=== PATIENT | male | born 1975 | race Native Hawaiian/Other Pacific Islander ===

== ENCOUNTER 2021-08-02 00:20 | Inpatient (IN) | payer OTHER ==
[~2021-08-02] VITALS: Ht 170.2 cm; Wt 83.7 kg
[2021-08-02 01:08] LABS: Eosinophils # (auto) 0.1 10 ^3/uL (0-0.8); Eosinophils % (auto) 1.6 % (0.0-7.0); Lymphocytes # (auto) 2.1 10 ^3/uL (0.4-5.4); Monocytes # (auto) 0.6 10 ^3/uL (0-1.3); Nucleated Red Blood Cells % 0.1 %
[2021-08-02 01:12] LABS: Basophils # (auto) 0 10 ^3/uL (0-0.2); Basophils % (auto) 0.5 % (0.0-2.0); Lymphocytes % (auto) 22.3 % (10.0-50.0); Mean Corpuscular Hemoglobin 32.8 pg (28.0-32.0); Mean Corpuscular Hgb Conc. 34.6 g/dL (32.0-36.0); Monocytes % (auto) 6.6 % (0.0-12.0); Neutrophils # (auto) 6.5 10 ^3/uL (1.6-8.6); Red Blood Cells 5.47 10^6/uL (4.5-5.90); Red Cell Distribution Width 13.3 % (11.8-14.3); White Blood Cell 9.5 10^3/uL (4.4-10.8)
[2021-08-02 01:38] LABS: BUN/Creatinine Ratio 13.5; Calcium 8.3 mg/dL (8.5-10.1); Potassium 4.5 mmol/L (3.5-5.1)
[2021-08-02 03:19] LABS: Lactic Acid w/Reflex 2.7 mmol/L (0.4-2.0)
[2021-08-02] MEDS ORDERED: FUROSEMIDE 40 MG/4 ML VIAL IV ONE (04:45)
[2021-08-02 05:48] LABS: Albumin 3.4 g/dL (3.4-5.0); Calcium 8.5 mg/dL (8.5-10.1); Lactic Acid w/Reflex 2.6 mmol/L (0.4-2.0); Potassium 4.5 mmol/L (3.5-5.1)
[2021-08-02 05:52] LABS: BUN/Creatinine Ratio 14.9; Bilirubin, Total 0.5 mg/dL (0.2-1.0); Total Protein 6.9 g/dL (6.4-8.2)
[2021-08-02] MEDS ORDERED: TEMAZEPAM 15 MG CAP PO PRN (06:00)
[2021-08-02] MEDS ORDERED: ONDANSETRON HCL 4 MG/2 ML VIAL IV PRN (06:00)
[2021-08-02] MEDS ORDERED: MORPHINE SULFATE INJECTION 2 MG/ML SYRG IV PRN (06:00)
[2021-08-02] MEDS ORDERED: ACETAMINOPHEN 325 MG TAB PO PRN (06:00)
[2021-08-02] MEDS ORDERED: NITROGLYCERIN 0.4 MG SL TAB SL PRN (06:00)
[2021-08-02] MEDS ORDERED: FUROSEMIDE 20 MG TAB PO SCH (06:00)
[2021-08-02 09:36] LABS: Cholesterol 154 mg/dL (< 200)
[2021-08-02 09:38] LABS: HDL Cholesterol 54 mg/dL (40-59); LDL Cholesterol 89 mg/dL (< 100); Triglycerides 135 mg/dL (< 150)
[2021-08-02 09:52] LABS: Urine Bacteria NONE SEEN /hpf (None Seen); Urine Blood 1+ /uL (Negative); Urine Hyaline Cast FEW /lpf (0 - 2); Urine Specific Gravity 1.007 (1.001-1.035); Urine WBC <1 /hpf (0 - 3)
[2021-08-02] MEDS ORDERED: amLODIPine BESYLATE 5 MG TAB PO SCH (10:00)
[2021-08-02] MEDS ORDERED: METOPROLOL TARTRATE 25 MG TAB PO SCH (10:00)
[2021-08-02 10:05] LABS: Alcohol, Urine < 3.0 mg/dL (0-10); Amphetamine Screen, Urine POSITIVE (NEGATIVE); Barbiturate Scree,Urine NEGATIVE (NEGATIVE); Benzodiazephine Screen, Urine NEGATIVE (NEGATIVE); Cannabinoid Screen, Urine NEGATIVE (NEGATIVE); Cocaine Screen, Urine NEGATIVE (NEGATIVE); Opiate Scree,Urine NEGATIVE (NEGATIVE); Phencyclidine Screen, Urine NEGATIVE (NEGATIVE)
[2021-08-02] MEDS: ASPirin 81 mg TAB PO SCH (10:48)
[2021-08-02] MEDS: LISINOPRIL 10 MG TAB PO SCH (10:49)
[2021-08-02] MEDS: PANTOPRAZOLE 40 MG TAB PO SCH (10:50)
[2021-08-02] MEDS: ENOXAPARIN SOD 40 MG/0.4 ML SYRINGE SC SCH (10:51)
[2021-08-02] MEDS ORDERED: cefTRIAXone 1GM/50ML D5W 50 ML IV ONE (14:45)
[2021-08-02] MEDS ORDERED: VANCOMYCIN PER PHARMACY 0 MG IV SCH (14:45)
[2021-08-02] MEDS ORDERED: VANCOMYCIN 1GM/250ML 250 ML IV ONE (15:45)
[2021-08-02] MEDS: chlordiazePOXIDE HCL 25 MG CAP PO SCH (18:49)
[2021-08-02] MEDS: FUROSEMIDE 40 MG/4 ML VIAL IV SCH (18:49)
[2021-08-02 21:38] VITALS: BP 115/71
[2021-08-02] MEDS: ATORVASTATIN 20 MG TAB PO SCH (22:12)
[2021-08-02] MEDS: CARVEDILOL 12.5 MG TAB PO SCH (22:13)
[2021-08-02 22:14] VITALS: BP 115/79
[2021-08-03] MEDS: chlordiazePOXIDE HCL 25 MG CAP PO SCH ×5 (00:48→18:29)
[2021-08-03] MEDS: VANCOMYCIN 1GM/250ML 250 ML IV SCH ×2 (04:29→16:42)
[2021-08-03 05:30] VITALS: BP 105/77
[2021-08-03 05:49] LABS: Basophils # (auto) 0.1 10 ^3/uL (0-0.2); Basophils % (auto) 0.8 % (0.0-2.0); Eosinophils # (auto) 0.2 10 ^3/uL (0-0.8); Eosinophils % (auto) 2.4 % (0.0-7.0); Hematocrit 48.6 % (41.0-53.0); Hemoglobin 16.2 g/dL (13.5-17.5); Lymphocytes % (auto) 26.3 % (10.0-50.0); Mean Corpuscular Hemoglobin 32.4 pg (28.0-32.0); Mean Corpuscular Hgb Conc. 33.4 g/dL (32.0-36.0); Mean Corpuscular Volume 97.1 fL (80.0-100.0); Monocytes # (auto) 0.6 10 ^3/uL (0-1.3); Monocytes % (auto) 7.9 % (0.0-12.0); Neutrophils # (auto) 4.8 10 ^3/uL (1.6-8.6); Neutrophils % (auto) 62.6 % (37.0-80.0); Nucleated Red Blood Cells % 0.1 %; Red Cell Distribution Width 13.2 % (11.8-14.3); White Blood Cell 7.6 10^3/uL (4.4-10.8)
[2021-08-03] MEDS: FUROSEMIDE 40 MG/4 ML VIAL IV SCH ×2 (05:50→18:30)
[2021-08-03 09:00] VITALS: BP 98/67
[2021-08-03] MEDS ORDERED: cefTRIAXone 1GM/50ML D5W 50 ML IV SCH (09:00)
[2021-08-03] MEDS: LISINOPRIL 10 MG TAB PO SCH (10:00)
[2021-08-03] MEDS: ENOXAPARIN SOD 40 MG/0.4 ML SYRINGE SC SCH ×2 (10:00→10:30)
[2021-08-03] MEDS: PANTOPRAZOLE 40 MG TAB PO SCH (10:29)
[2021-08-03] MEDS: ASPirin 81 mg TAB PO SCH (10:30)
[2021-08-03] MEDS: CARVEDILOL 12.5 MG TAB PO SCH ×2 (10:30→22:07)
[2021-08-03 13:00] VITALS: BP 128/71
[2021-08-03 16:37] VITALS: BP 98/71
[2021-08-03 22:00] VITALS: BP 108/74
[2021-08-03] MEDS: ATORVASTATIN 20 MG TAB PO SCH (22:07)
[2021-08-04] MEDS: VANCOMYCIN 1GM/250ML 250 ML IV SCH (04:00)
[2021-08-04 05:00] VITALS: BP 110/80
[2021-08-04] MEDS: FUROSEMIDE 40 MG/4 ML VIAL IV SCH (05:55)
[2021-08-04] MEDS: chlordiazePOXIDE HCL 25 MG CAP PO SCH ×2 (05:56)
[2021-08-04 09:00] VITALS: BP 119/82
== END 2021-08-04 10:42 | disposition home or self-care (01) | DRG 194 ==
LOC: ER 00:20 → TELE 05:59 → TELE-CENTR 20:30
PROVIDERS: ADMIT Nurse Practitioner; ATTEND Internal Medicine
DX: I11.0 Hypertensive heart disease with heart failure (principal); F10.10 Alcohol abuse, uncomplicated; I50.21 Acute systolic (congestive) heart failure; R06.03 Acute respiratory distress; F15.10 Other stimulant abuse, uncomplicated; Z20.822 Contact with and (suspected) exposure to COVID-19; Z79.899 Other long term (current) drug therapy; F19.10 Other psychoactive substance abuse, uncomplicated; Y90.0 Blood alcohol level of less than 20 mg/100 ml
CPT/HCPCS: 36415; 71045; 80048; 80053; 80061; 80307; 80320; 81001; 83036; 83605; 83880; 84443; 84484; 85025; 85379; 87040; 87081; 87426; 93005; 93306; 96365; 96367; 96372; 96375; 96376; G0378; J0696; J2405

== ENCOUNTER 2021-09-06 08:00 | Emergency (ER) | payer OTHER ==
[~2021-09-06] VITALS: Ht 167.6 cm; Wt 77.1 kg
[2021-09-06 08:31] LABS: Basophils # (auto) 0.1 10 ^3/uL (0-0.2); Basophils % (auto) 1.7 % (0.0-2.0); Eosinophils # (auto) 0.3 10 ^3/uL (0-0.8); Hematocrit 50.3 % (41.0-53.0); Hemoglobin 17.1 g/dL (13.5-17.5); Lymphocytes # (auto) 1.3 10 ^3/uL (0.4-5.4); Lymphocytes % (auto) 26.3 % (10.0-50.0); Mean Corpuscular Hemoglobin 31.4 pg (28.0-32.0); Mean Corpuscular Volume 92.5 fL (80.0-100.0); Monocytes # (auto) 0.5 10 ^3/uL (0-1.3); Neutrophils # (auto) 2.8 10 ^3/uL (1.6-8.6); Nucleated Red Blood Cells % 0.2 %; Red Blood Cells 5.44 10^6/uL (4.5-5.90); Red Cell Distribution Width 12.9 % (11.8-14.3); White Blood Cell 5.1 10^3/uL (4.4-10.8)
[2021-09-06 08:33] VITALS: BP 121/88
[2021-09-06 08:47] LABS: INR 1.07 (0.9-1.15); Partial Thromboplastin Time 27.6 sec (23.6-33.0)
[2021-09-06 08:54] LABS: Anion Gap 8 (5-15); Carbon Dioxide 24 mmol/L (21-32); Chloride 104 mmol/L (98-107); Glucose 107 mg/dL (74-106); Sodium 136 mmol/L (136-145)
[2021-09-06 08:55] LABS: Alanine Aminotransferase 29 U/L (16-61); Albumin 3.4 g/dL (3.4-5.0); Alkaline Phosphatase 60 U/L (45-117); Aspartate Aminotransferase 22 U/L (15-37); BUN/Creatinine Ratio 15.5; Bilirubin, Total 0.7 mg/dL (0.2-1.0); Blood Urea Nitrogen 15 mg/dL (7-18); Calcium 8.6 mg/dL (8.5-10.1); GFR African American 107 mL/min; GFR Non-African American 89 mL/min; Total Protein 6.9 g/dL (6.4-8.2)
== END 2021-09-06 10:01 | disposition home or self-care (01) ==
LOC: ER 08:00
DX: I11.0 Hypertensive heart disease with heart failure (principal); I50.9 Heart failure, unspecified; Z87.891 Personal history of nicotine dependence
CPT/HCPCS: 36415; 71045; 80053; 83880; 84484; 85025; 85610; 85730; 93005

== ENCOUNTER 2021-11-08 20:52 | Emergency (ER) | payer OTHER ==
[~2021-11-08] VITALS: Ht 170.2 cm; Wt 81.2 kg
[2021-11-08 21:43] VITALS: BP 164/97
== END 2021-11-08 22:31 | disposition home or self-care (01) ==
LOC: ER 20:52
DX: S63.502A Unspecified sprain of left wrist, initial encounter (principal); I11.0 Hypertensive heart disease with heart failure; I50.9 Heart failure, unspecified; F17.210 Nicotine dependence, cigarettes, uncomplicated; X58.XXXA Exposure to other specified factors, initial encounter; Y93.89 Activity, other specified; Y92.89 Other specified places as the place of occurrence of the external cause; Y99.8 Other external cause status
CPT/HCPCS: 73110; 73130